=== PATIENT | female | born 1940 | race Caucasian/White ===

== ENCOUNTER → 2017-03-09 | Outpatient (CLI) | payer OTHER, BC ==
[~2017-03-09] MED LIST: ALL100 PO; ASPI1TAB83 PO; ATOR-24 PO; CHOL100010 PO; CITA10TA4 PO; DICY1TAB25 PO; FRS/40 PO; IMP/50 PO; ISOS60TA25 PO; LEVO75TA PO; METO25TA56 PO; NTRGSL/4 UT; PANT1TAB3 PO; SOLI10TA2 PO
== END | disposition home or self-care (01) ==
LOC: C.LABSPEC 13:17
PROVIDERS: ATTEND Urology
DX: R35.0 Frequency of micturition (principal); R39.15 Urgency of urination

== ENCOUNTER → 2017-05-25 | Outpatient (CLI) | payer OTHER, BC | END | disposition home or self-care (01) | LOC: C.LABSPEC 17:03 | PROVIDERS: ATTEND Urology | DX: R32 Unspecified urinary incontinence (principal) ==

== ENCOUNTER 2021-12-04 18:11 | Inpatient (IN) ==
--- NOTE | 2021-12-04 18:23 | Emergency Department Note ---
Impression & Plan COVID-19, Confusion, Positive blood culture ED Provider Note Provider: Coy Najera MD DATE OF SERVICE: 12/05/2021 CHIEF COMPLAINT: COVID, blood cultures HISTORY OF PRESENT ILLNESS: Patient is a 81-year-old female history of CVA and CKD presenting today from her nursing facility [facility]. Seen yesterday in callback by pharmacy staff due to positive blood culture today. Patient has a part of her COVID yesterday and has been having respiratory symptoms for about 2 weeks. She has been feeling more weak. Placed on doxycycline yesterday for possible pneumonia but blood work was reassuring. Given positive culture came back here today. Evidently patient is been a bit more confused and paranoid this morning and was refusing some medications according to daughter. She is complaining of a scratchy throat but swallowing okay. She does not really remember being angry and mean earlier today. REVIEW OF SYSTEMS: A total of 10 review of systems was obtained and negative except as stated above in the HPI. PAST MEDICAL HISTORY: As noted above MEDICATIONS: Reviewed home medications SOCIAL HISTORY: Has been at home but recently for the last several weeks at [facility] PHYSICAL EXAM: GENERAL: alert and oriented in no acute distress on stretcher Head: normocephalic and atraumatic EYES: No injection, discharge or icterus. NECK: Trachea midline. ENT: Mucous membranes pink and moist. LUNGS: Airway patent. No retractions. Breath sounds clear HEART: Regular rate and rhythm. No chest wall tenderness ABDOMEN: Soft and non-tender, without guarding or rebound. SKIN: Acyanotic, warm, dry, some trace contusions in the upper extremities from prior blood work. EXTREMITIES: patient with 1+ edema of the lower extremities. NEUROLOGICAL: No focal deficits. No aphasia. No facial droop or slurred speech. CONTINUOUS CARDIAC MONITORING: was ordered and showed a heart rate of 80s bpm in normal sinus rhythm Patient's laboratory studies and imaging reviewed. Differential includes Infection, dehydration, metabolic abnormality, hypo/hyperglycemia, electrolyte disturbance, anemia, hypoxia, cardiac sources, intracerebral event, toxicologic, neurologic, as well as other pathologies. IMPRESSION/MEDICAL DECISION MAKING: Patient weak and fatigued with respiratory symptoms most likely from COVID. X- ray was somewhat questionable yesterday. Blood cultures grew staph positive infection given this call back here today. It was a custodial facility receiving some therapy about was somewhat tenuous yesterday. Repeat blood will be sent today as well as cultures. Question she may have more serious infection again she is not doing well overall in general. Evidently was very paranoid and agitated earlier and not herself. Questions related to COVID infection versus possible other bacterial infection. Patient likely not significant hypoxic here hypotensive. Nonfocal exam but given some confusion. I will complete a CT of the head. Per radiology report no significant abnormality. CT of the chest completed given questions on the chest x-ray yesterday of a consolidation right lower lobe. Given the positive blood culture already will cover with vancomycin at this time given allergy profile. WBC count similar today around 6.5. Stable anemia. CT chest without contrast is reassuring today. Not hypoxic, low suspicion for PE at this point. Given her altered mental status likely this is just from the COVID recovered again. With antibiotics pending repeat cultures and further speciation. Will be further observed here in the hospital given the culture results and her likely delirium earlier. DIAGNOSIS: COVID-19, confusion, positive blood cultures DISPOSITION: Hospitalist will evaluate Patient was agreeable with this plan. Daughters updated at bedside. Past Med/Surg History Medical History (Updated 12/04/21 @ 19:05 by Coy Najera M.D.) Anemia Chronic kidney disease STAGE 3 Congestive heart failure Degenerative disc disease Depression GERD (gastroesophageal reflux disease) Gout Hyperlipidemia Hypertension Hypothyroidism Irritable bowel syndrome Migraine Morbid obesity with BMI of 50.0-59.9, adult Myocardial Infarction 2009 AND 2015 (2) Osteoarthritis Sleep apnea NO MACHINE Stroke TOTAL 3 STROKES (LAST EVENT JANUARY 2017) Urinary incontinence HX BLADDER STIMULATOR (DEVICE TURNED OFF) Surgical History History of appendectomy History of bladder surgery BLADDER STIMULATOR IMPLANTED (NOT TURNED ON/DEVICE NEVER WORKED) History of cardiac cath 2006 AND 2015 History of cataract surgery RT/LEFT History of cholecystectomy History of colonoscopy History of esophagogastroduodenoscopy (EGD) History of heart artery stent HEART CATH 200-1 STENT PLACED History of hemorrhoidectomy X2 History of tooth extraction History of total abdominal hysterectomy and bilateral salpingo-oophorectomy History of total left knee replacement (TKR) Family History Other No family history of adverse response to anesthesia Social History Smoking Status: Never smoker Second Hand Exposure: Yes (daughter smokes); Hx Alcohol Use: No Hx Substance Use: No Preferred Language: Divehi Communication Ability: Effective Linen Aide Required: No Beliefs That Will Affect Care: None Current Living Situation: Alone Current Living Situation Comment: Lives in daughter's backyard in a camper Feels Safe at Home: Yes Assistive Devices: Cane, Glasses and Walker Allergies Allergies Allergy/AdvReac Type Severity Reaction Status Date / Time albuterol Allergy Intermediate Difficulty Verified 06/04/18 08:32 Breathing cephalexin Allergy Mild VOMITTING, Verified 06/04/18 08:32 MIGRAINES Home Meds Home Medications Medication Instructions Recorded Confirmed allopurinol 100 mg tablet 100 mg PO BID 12/12/17 06/04/18 aspirin 81 mg tablet,delayed 81 mg PO HS 12/12/17 06/04/18 release atorvastatin 40 mg tablet 40 mg PO QPM 12/12/17 06/04/18 calcitriol 0.25 mcg capsule 0.25 mcg PO 3XWK 12/12/17 06/04/18 cholecalciferol (vitamin D3) 25 1,000 unit PO QPM 12/12/17 06/04/18 mcg (1,000 unit) capsule (Vitamin D3) clopidogrel 75 mg tablet (Plavix) 75 mg PO QPM 12/12/17 06/04/18 dicyclomine 20 mg tablet 20 mg PO TID 12/12/17 06/04/18 duloxetine 20 mg capsule,delayed 20 mg PO QAM 12/12/17 06/04/18 release furosemide 40 mg tablet 40 mg PO QAM 12/12/17 06/04/18 imipramine HCl 50 mg tablet 50 mg PO QPM 12/12/17 06/04/18 isosorbide mononitrate 60 mg 60 mg PO BID 12/12/17 06/04/18 tablet,extended release 24 hr levothyroxine 75 mcg capsule 75 mcg PO QAM 12/12/17 06/04/18 metoprolol tartrate 25 mg tablet 25 mg PO UD 12/12/17 06/04/18 pantoprazole 40 mg tablet,delayed 40 mg PO QAM 12/12/17 06/04/18 release acetaminophen 500 mg tablet 500 mg PO Q4 PRN Headache 05/28/18 06/04/18 nitroglycerin 0.4 mg sublingual 1 dose sublingual UD PRN Angina 05/28/18 05/28/18 tablet polyethylene glycol 3350 17 gram 17 g PO DAILY PRN Constipation 05/28/18 05/28/18 oral powder packet (Miralax) Previous Rx's Medication Instructions Recorded benzonatate 100 mg capsule 100 mg PO TID PRN cough #12 caps 12/03/21 doxycycline hyclate 100 mg capsule 100 mg PO BID 7 days #14 caps 12/03/21 Results & Data (ED) Vital Signs Vital Signs - 24 hr 12/04/21 18:14 Temperature 36.2 C L Temperature Source Temporal Artery Scan Pulse Rate 72 Pulse Rhythm Regular Pulse Strength Normal Respiratory Rate 22 Respiratory Effort / Characteristics Non-Labored Spontaneous Respiratory Depth Normal Respiratory Pattern Regular Blood Pressure 109/72 Blood Pressure Mean 84 Blood Pressure Position Sitting Pulse Oximetry 98 Oxygen Delivery Method Room Air Sepsis Recent Fever Within 48 Hours Yes Sepsis New/Unexplained Change in Mental Status No Sepsis Action Taken by Nursing No Action Required Laboratory Data Result diagrams: 12/04/21 18:40 12/04/21 18:40 Lab Results 12/04/21 12/04/21 Range/Units 18:40 18:40 WBC 6.49 (4.8-10.8) K/ul RBC 3.50 L (3.93-5.22) M/uL Hgb 11.2 L (12.0-16.0) g/dl Hct 34.7 (34.1-44.9) % MCV 99.1 (80.0-100.0) fL MCH 32.0 (25.0-34.0) pg MCHC 32.3 (32.0-36.0) g/dL RDW Std Deviation 54.4 H (36.4-46.3) fL RDW Coeff of Teresa 14.9 H (11.5-14.5) % Plt Count 280 (130-400) K/uL MPV 9.1 L (9.4-12.3) fL Immature Gran % (Auto) 0.3 % Neut % (Auto) 68.7 % Lymph % (Auto) 19.1 % Emery % (Auto) 11.7 % Eos % (Auto) 0.0 % Baso % (Auto) 0.2 % Neut # (Auto) 4.46 (1.4-6.5) K/uL Lymph # (Auto) 1.24 (1.2-3.4) K/uL Emery # (Auto) 0.76 (0.24-0.82) K/uL Eos # (Auto) 0.00 (0-0.50) K/uL Baso # (Auto) 0.01 (0-0.2) K/uL Immature Gran # (Auto) 0.02 (0.00-0.02) K/uL Sodium 141 (136-145) mmol/L Potassium 3.5 (3.5-5.1) mmol/L Chloride 99 (98-107) mmol/L Carbon Dioxide 33 H (21-32) mmol/L Anion Gap 9 (3-11) BUN 37 H (6-23) mg/dl Creatinine 1.29 H (0.6-1.2) mg/dl Est Cr Clr Drug Dosing 35.7 ml/min Est GFR ( Amer) 45.0 ml/min Est GFR (Non-Af Amer) 38.8 ml/min BUN/Creatinine Ratio 28.7 H (10-20) Glucose 102 H (70-99(Fasting)) mg/dl Calcium 9.5 (8.5-10.1) mg/dl Total Bilirubin 0.5 (0.2-1.0) mg/dl AST 19 (13-39) U/L ALT 12 (7-52) U/L Alkaline Phosphatase 139 H (34-104) U/L Troponin I High Sens 8.6 (0-14) pg/ml Total Protein 7.1 (6.0-8.3) gm/dl Albumin 3.8 (3.4-5.0) gm/dl Globulin 3.3 (2.5-4.0) gm/dl Albumin/Globulin Ratio 1.2 (0.9-2) Imaging Data Radiologist's Impression: Head CT 12/04/21 18:21 CT head/brain wo con CLINICAL HISTORY: confusion Technique: Contiguous axial CT images of the head were acquired from the base of the skull to the vertex without intravenous contrast administration. Images were viewed in brain, subdural and bone windows. Automated dose lowering techniques and/or adjustment according to patient size were utilized for this exam. Comparison: Comparison is made to CT head 02/21/2018 Findings: Areas of decreased attenuation are present in the periventricular and subcortical white matter bilaterally consistent with small vessel ischemic disease. Generalized cerebral atrophy with commensurate enlargement of the ventricles, sulci, and cisterns is also present. There is no acute intracranial hemorrhage or evidence of acute territorial infarction. No shift of the midline structures, mass effect, or extra-axial abnormalities are shown. Atherosclerotic calcifications are present in the intracranial segments of the internal carotid arteries. Old small left occipital lobe infarct is unchanged. Imaged portions of the paranasal sinuses and mastoid air cells are clear. The orbits appear normal. There are no acute fractures of the calvaria or scalp swe lling. Impression: No acute intracranial hemorrhage, no evidence of acute territorial infarction or other acute intracranial disease process. ACT 112: Negative or not required by law. Electronically signed by: Tang Guillaume M.D. 12/04/2021 7:[address] 12/04/21 18:24 CT chest diagnostic wo con CLINICAL HISTORY: ?pna, has covid, sob TECHNIQUE: Multidetector row helical CT of the chest was performed. Coronal and sagittal reformations were obtained. Automated dose lowering techniques and/or adjustment according to patient size were utilized for this exam. Comparison: Comparison is made to chest radiograph 12/03/2021 FINDINGS: Lungs and pleura: Mild atelectasis is seen bilaterally. No definite consolidation is seen to suggest pneumonia. Heart and pericardium: Heart size is normal. No pericardial effusion. Vessels: The pulmonary trunk is enlarged measuring 34 mm. Mediastinum and bishop: Unremarkable. Chest wall and lower neck: Unremarkable. Abdomen: A moderate hiatal hernia is seen. Patient is status post cholecyst ectomy. Bones: Degenerative changes in the thoracic spine. IMPRESSION: 1. No acute abnormality and in particular no CT evidence of pneumonia. 2. Moderate hiatal hernia and atelectasis. 3. Pulmonary hypertension. ACT 112: Negative or not required by law. Electronically signed by: Tang Guillaume M.D. 12/04/2021 7:10 PM Discharge Plan Visit Data Chief Complaint: Infection Stated Complaint: blood infection,recalled to hosp.altered mental st ED Provider: Coy Najera Discharge Problem: COVID-19, Confusion, Positive blood culture Patient Disposition: Being Evaluated by Hospitalist Forms Stand Alone [facility] Prescriptions: No Action furosemide 40 mg Tablet 40 mg PO QAM atorvastatin 40 mg Tablet 40 mg PO QPM imipramine HCl 50 mg Tablet 50 mg PO QPM clopidogrel [Plavix] 75 mg Tablet 75 mg PO QPM allopurinol 100 mg Tablet 100 mg PO BID aspirin 81 mg Tablet,Delayed Release (Dr/Ec) 81 mg PO HS isosorbide mononitrate 60 mg Tablet Extended Release 24 Hr 60 mg PO BID dicyclomine 20 mg Tablet 20 mg PO TID pantoprazole 40 mg Tablet,Delayed Release (Dr/Ec) 40 mg PO QAM calcitriol 0.25 mcg Capsule 0.25 mcg PO 3XWK Rx Instructions: MONDAY.MON/MONDAY cholecalciferol (vitamin D3) [Vitamin D3] 1,000 unit Capsule 1,000 unit PO QPM metoprolol tartrate 25 mg Tablet 25 mg PO UD Rx Instructions: TAKES 1 TAB IN AM, 1/2 TAB IN PM and take additional 1/2 tablet as needed for palpitations duloxetine 20 mg Capsule,Delayed Release(Dr/Ec) 20 mg PO QAM levothyroxine 75 mcg Capsule 75 mcg PO QAM polyethylene glycol 3350 [Miralax] 17 gram Powder In Packet 17 g PO DAILY PRN (Reason: Constipation) acetaminophen 500 mg Tablet 500 mg PO Q4 PRN (Reason: Headache) nitroglycerin 0.4 mg Tablet, Sublingual 1 dose sublingual UD PRN (Reason: Angina) doxycycline hyclate 100 mg capsule 100 mg PO BID 7 Days Qty: 14 0RF benzonatate 100 mg capsule 100 mg PO TID PRN (Reason: cough) Qty: 12 0RF Referrals Referrals: Tarun Sanchez MD [Primary Care Provider] -
[2021-12-04] MEDS ORDERED: VANCOMYCIN HCL 2,000 MG in SODIUM CHLORIDE 0.9% 500 ML IV ONE (18:40)
[2021-12-04] MEDS ORDERED: VANCOMYCIN CONSULT ACTIVE PRN (18:40)
[2021-12-04 18:52] LABS: Basophils # (auto) 0.01 K/uL (0-0.2); Basophils % (auto) 0.2 %; Hematocrit (blood only) 34.7 % (34.1-44.9); Hemoglobin 11.2 g/dl (12.0-16.0); Immature Granulocytes # (auto) 0.02 K/uL (0.00-0.02); Immature Granulocytes % (auto) 0.3 %; Lymphocytes # (auto) 1.24 K/uL (1.2-3.4); Lymphocytes % (auto) 19.1 %; Mean Corpuscular Hgb Conc 32.3 g/dL (32.0-36.0); Mean Corpuscular Volume 99.1 fL (80.0-100.0); Mean Platelet Volume 9.1 fL (9.4-12.3); Monocytes # (auto) 0.76 K/uL (0.24-0.82); Monocytes % (auto) 11.7 %; Neutrophils # (auto) 4.46 K/uL (1.4-6.5); Neutrophils % (auto) 68.7 %; Platelet Count 280 K/uL (130-400); RDW Coefficient of Variation 14.9 % (11.5-14.5); RDW Standard Deviation 54.4 fL (36.4-46.3); White Blood Count 6.49 K/ul (4.8-10.8)
--- NOTE | 2021-12-04 19:06 | CT Scan Report ---
CT head/brain wo con CLINICAL HISTORY: confusion Technique: Contiguous axial CT images of the head were acquired from the base of the skull to the belkys chris without intravenous contrast administration. Images were viewed in brain, subdural and [facility] . Automated dose lowering techniques and/or adjustment according to patient size were utilized for this exam. Comparison: Comparison is made to CT head 02/21/2018 Findings: Areas of decreased attenuation are present in the periventricular and subcortical white matter bilate rally consistent with small vessel ischemic disease. Generalized cerebral atrophy with commensurate e nlargement of the ventricles, sulci, and cisterns is also present. There is no acute intracranial hem orrhage or evidence of acute territorial infarction. No shift of the midline structures, mass effect, or extra-axial abnormalities are shown. Atherosclerotic calcifications are present in the intracran ial segments of the internal carotid arteries. Old small left occipital lobe infarct is unchanged. Imaged portions of the paranasal sinuses and mastoid air cells are clear. The orbits appear normal. There are no acute fractures of the calvaria or scalp swelling. Impression: No acute intracranial hemorrhage, no evidence of acute territorial infarction or other acute intracra nial disease process. ACT 112: Negative or not required by law. Electronically signed by: Tang Guillaume M.D. 12/04/2021 7:05 PM
--- NOTE | 2021-12-04 19:12 | CT Scan Report ---
CT chest diagnostic wo con CLINICAL HISTORY: ?pna, has covid, sob TECHNIQUE: Multidetector row helical CT of the chest was performed. Coronal and sagittal reformations were obtained. Automated dose lowering techniques and/or adjustment according to patient size were u tilized for this exam. Comparison: Comparison is made to chest radiograph 12/03/2021 FINDINGS: Lungs and pleura: Mild atelectasis is seen bilaterally. No definite consolidation is seen to suggest pneumonia. Heart and pericardium: Heart size is normal. No pericardial effusion. Vessels: The pulmonary trunk is enlarged measuring 34 mm. Mediastinum and bishop: Unremarkable. Chest wall and lower neck: Unremarkable. Abdomen: A moderate hiatal hernia is seen. Patient is status post cholecystectomy. Bones: Degenerative changes in the thoracic spine. IMPRESSION: 1. No acute abnormality and in particular no CT evidence of pneumonia. 2. Moderate hiatal hernia and atelectasis. 3. Pulmonary hypertension. ACT 112: Negative or not required by law. Electronically signed by: Tang Guillaume M.D. 12/04/2021 7:10 PM
[2021-12-04 19:18] LABS: Albumin Globulin Ratio 1.2 (0.9-2); Albumin Level 3.8 gm/dl (3.4-5.0); BUN Creatinine Ratio 28.7 (10-20); Bilirubin,Total 0.5 mg/dl (0.2-1.0); Calcium 9.5 mg/dl (8.5-10.1); Creatinine Clr Calc Pharmacy 35.7 ml/min; Est GFR (Non-African American) 38.8 ml/min; Globulin 3.3 gm/dl (2.5-4.0); Potassium 3.5 mmol/L (3.5-5.1); Total Protein 7.1 gm/dl (6.0-8.3)
[2021-12-04 19:19] LABS: Troponin I High Sensitivity 8.6 pg/ml (0-14)
[2021-12-04] MEDS ORDERED: LACTATED RINGER'S 1,000 ML IV ONE (20:00)
--- NOTE | 2021-12-04 22:30 | History & Physical Report ---
Date of Service December 04, 2021 Assessment & Plan (1) Agitation: Plan: Transient agitation Secondary to COVID-19 illness Patient currently mentating well. Rule out UTI Gram-positive bacteremia 1 bottle from ER visit yesterday Likely contaminant Patient not septic chronic diastolic heart failure (EF 55 to 60%, TTE 2021), patient euvolemic to dry hx CAD/CVA valvular heart disease (moderate MS, ) hypertension, BP on the lower side hyperlipidemia, on statin Rx CRI, creatinine at baseline hypothyroidism, euthyroid as of recent TSH Traumatic left calcaneal fracture, patient follows with [facility] anxiety/mood disorder OBS GMF Zyprexa prn agitation Supportive management for COVID-19 illness Check UA follow final blood CS results. Hold off on antibiotics for now PT OT eval DVT prophylaxis. Lovenox subcu DNR Patient requesting for daughter to be updated of her progress. Ms. Eunice Soliman, contact #[phone]. Text document was generated using [email or web address] voice recognition software. It may contain grammatical or spelling errors. Kindly contact undersigned for clarification of any documentation item in question. History of Present Illness Chief Complaint: Abnormal blood work, agitation Primary Care Provider: Tarun Sanchez MD History obtained from patient and records. Medical history significant for chronic diastolic heart failure (EF 55 to 60%, TTE 2021), CAD/CVA, valvular heart disease (moderate MS, ), hypertension, hyperlipidemia, CRI (baseline creatinine 1.3), hypothyroidism, anxiety/mood disorder traumatic left calcaneal fracture, Patient admitted at [facility] 2 months ago for recurrent falls resulting in left calcaneal fracture. No operative intervention. Patient currently following with [facility]. Subsequent discharged to [facility] rehab facility. Patient transferred [place] for extended rehab. 2 weeks ago patient noted cough symptoms productive of clear sputum. Positive sick COVID-19 contacts at [facility]. Patient completed COVID-19 vaccination. Poor appetite. Worsening shortness of breath without chest pain. Patient evaluated at the ER yesterday. Possible pneumonia on chest x-ray. Patient discharged back to nursing facility with doxycycline Rx. Gram-positive cocci in clusters growing from 1 bottle from blood cultures obtained from ER visit. 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 Patient confused and paranoid. Refusing some medications as per daughter. Patient denies unusual chest pain, SOB. Cough productive of clear sputum. Patient remembers yelling at [facility] staff because she was tired. Patient brought back to ER for evaluation. IV Vancomycin administered at the ER. Medical History as above Surgical History : Hemorrhoidectomy, laparoscopic appendectomy, partial toe removal left, tonsillectomy, cholecystectomy, CHRISTIANO, left knee replacement Family History : Leukemia, heart disease Personal/Social history : Non-smoker, no EtOH intake, homemaker in her younger years Allergies Allergy/AdvReac Type Severity Reaction Status Date / Time albuterol Allergy Intermediate Difficulty Verified 12/04/21 21:36 Breathing cephalexin Allergy Mild VOMITTING, Verified 12/04/21 21:36 MIGRAINES Home Medications Medication Instructions Recorded Confirmed Type acetaminophen 325 mg tablet 650 mg PO Q6 PRN Fever Or Pain 12/04/21 12/04/21 History (Tylenol) allopurinol 300 mg tablet 300 mg PO DAILY 12/04/21 12/04/21 History aspirin 81 mg tablet,delayed 81 mg PO DAILY 12/04/21 12/04/21 History release atorvastatin 40 mg tablet 40 mg PO DAILY 12/04/21 12/04/21 History benzonatate 100 mg capsule 200 mg PO Q8 PRN Cough 12/04/21 12/04/21 History bisacodyl 10 mg rectal suppository [address] DAILY PRN .NO BM 12/04/21 12/04/21 History (Dulcolax (bisacodyl)) cetirizine 10 mg tablet (Zyrtec) 10 mg PO DAILY 12/04/21 12/04/21 History cholecalciferol (vitamin D3) 25 50 mcg PO DAILY 12/04/21 12/04/21 History mcg (1,000 unit) tablet (Vitamin D3) clopidogrel 75 mg tablet 75 mg PO DAILY 12/04/21 12/04/21 History clotrimazole-betamethasone 1 1 applic topical BID 12/04/21 12/04/21 History %-0.05 % topical cream cranberry conc-vit 1 ea PO BID 12/04/21 12/04/21 History N-[id number]-TKU-bromelain 3,875 mg/30 mL oral liquid (UTI-Stat) dicyclomine 20 mg tablet 20 mg PO BID 12/04/21 12/04/21 History duloxetine 20 mg capsule,delayed 20 mg PO DAILY 12/04/21 12/04/21 History release sprinkle ferrous gluconate 324 mg (37.5 mg 324 mg PO MOWEFR 12/04/21 12/04/21 History iron) tablet furosemide 40 mg tablet 40 mg PO BID 12/04/21 12/04/21 History isosorbide mononitrate 60 mg 60 mg PO DAILY 12/04/21 12/04/21 History tablet,extended release 24 hr levothyroxine 75 mcg tablet 75 mcg PO DAILY 12/04/21 12/04/21 History magnesium hydroxide 400 mg/5 mL 30 ml PO DAILY PRN DIRECT 12/04/21 12/04/21 History oral suspension (Milk of Magnesia) methyl salicylate-menthol topical 1 applic topical QS 12/04/21 12/04/21 History cream metoprolol tartrate 25 mg tablet 25 mg PO BID 12/04/21 12/04/21 History nitroglycerin 0.4 mg sublingual 0.4 mg sublingual DIRECTED 12/04/21 12/04/21 History tablet oxycodone 5 mg tablet 5 mg PO Q6H PRN Pain 12/04/21 12/04/21 History pantoprazole 40 mg tablet,delayed 40 mg PO QAM 12/04/21 12/04/21 History release potassium chloride 10 mEq 10 meq PO DAILY 12/04/21 12/04/21 History capsule,extended release vitamin A-vitamin C-vit E-min 1 tab PO DAILY 12/04/21 12/04/21 History tablet Past Med/Surg History Medical History (Updated 12/05/21 @ 09:57 by Leonid Jimenez MD) Anemia Chronic kidney disease STAGE 3 Congestive heart failure Degenerative disc disease Depression GERD (gastroesophageal reflux disease) Gout Hyperlipidemia Hypertension Hypothyroidism Irritable bowel syndrome Migraine Morbid obesity with BMI of 50.0-59.9, adult Myocardial Infarction 2009 AND 2016 (2) Osteoarthritis Sleep apnea NO MACHINE Stroke TOTAL 3 STROKES (LAST EVENT JANUARY 2017) Urinary incontinence HX BLADDER STIMULATOR (DEVICE TURNED OFF) Surgical History History of appendectomy History of bladder surgery BLADDER STIMULATOR IMPLANTED (NOT TURNED ON/DEVICE NEVER WORKED) History of cardiac cath 2006 AND 2015 History of cataract surgery RT/LEFT History of cholecystectomy History of colonoscopy History of esophagogastroduodenoscopy (EGD) History of heart artery stent HEART CATH 200-1 STENT PLACED History of hemorrhoidectomy X2 History of tooth extraction History of total abdominal hysterectomy and bilateral salpingo-oophorectomy History of total left knee replacement (TKR) Family History Other No family history of adverse response to anesthesia Social History Smoking Status: Never smoker Second Hand Exposure: Yes (daughter smokes); Hx Alcohol Use: No Hx Substance Use: No Preferred Language: Trinidadian Communication Ability: Effective Environmental Field Services Technician Required: No Beliefs That Will Affect Care: None Current Living Situation: Assisted Current Living Situation Comment: Lives in daughter's backyard in a camper Feels Safe at Home: Yes Safety Concerns: Feels Safe At This Time Assistive Devices: Cane, Glasses and Walker Review of Systems Review of Systems: As per HPI, all other systems reviewed and negative Physical Exam Physical Exam: GENERAL: Comfortable, pleasant, morbidly obese, no respiratory distress SKIN: Normal color, warm HEENT: Ajo palpebral conjunctivae, no ptosis, dry buccal mucosa NECK : Supple, short neck, no tenderness CHEST : Decreased breath sounds, occasional expiratory wheezes, no tenderness HEART : RRR, no obvious murmurs ABDOMEN: Some distention, nontender EXTREMITIES : Minimal LE swelling, no LE tenderness, no other conspicuous deformities noted NEUROLOGIC : Coherent, no facial asymmetry, gait and stance not assessed Results & Data Results & Data ([facility]) Vital Signs (Past 12 Hours) Vital Signs Temp Pulse Resp BP BP Pulse Ox O2 Del Method 12/04/21 18:12 19 143/83 H Room Air 12/04/21 18:14 36.2 C L 72 22 109/72 98 Room Air Laboratory Results Laboratory Results WBC 6.49 K/ul (4.8-10.8) 12/04/21 18:40 RBC 3.50 M/uL (3.93-5.22) L 12/04/21 18:40 Hgb 11.2 g/dl (12.0-16.0) L 12/04/21 18:40 Hct 34.7 % (34.1-44.9) 12/04/21 18:40 MCV 99.1 fL (80.0-100.0) 12/04/21 18:40 MCH 32.0 pg (25.0-34.0) 12/04/21 18:40 MCHC 32.3 g/dL (32.0-36.0) 12/04/21 18:40 RDW Std Deviation 54.4 fL (36.4-46.3) H 12/04/21 18:40 RDW Coeff of Teresa 14.9 % (11.5-14.5) H 12/04/21 18:40 Plt Count 280 K/uL (130-400) 12/04/21 18:40 MPV 9.1 fL (9.4-12.3) L 12/04/21 18:40 Immature Gran % (Auto) 0.3 % 12/04/21 18:40 Neut % (Auto) 68.7 % 12/04/21 18:40 Lymph % (Auto) 19.1 % 12/04/21 18:40 [place] % (Auto) 11.7 % 12/04/21 18:40 Eos % (Auto) 0.0 % 12/04/21 18:40 Baso % (Auto) 0.2 % 12/04/21 18:40 Neut # (Auto) 4.46 K/uL (1.4-6.5) 12/04/21 18:40 Lymph # (Auto) 1.24 K/uL (1.2-3.4) 12/04/21 18:40 [place]oup # (Auto) 0.76 K/uL (0.24-0.82) 12/04/21 18:40 Eos # (Auto) 0.00 K/uL (0-0.50) 12/04/21 18:40 Baso # (Auto) 0.01 K/uL (0-0.2) 12/04/21 18:40 Immature Gran # (Auto) 0.02 K/uL (0.00-0.02) 12/04/21 18:40 Sodium 141 mmol/L (136-145) 12/04/21 18:40 Potassium 3.5 mmol/L (3.5-5.1) 12/04/21 18:40 Chloride 99 mmol/L (98-107) 12/04/21 18:40 Carbon Dioxide 33 mmol/L (21-32) H 12/04/21 18:40 Anion Gap 9 (3-11) 12/04/21 18:40 BUN 37 mg/dl (6-23) H 12/04/21 18:40 Creatinine 1.29 mg/dl (0.6-1.2) H 12/04/21 18:40 Est Cr Clr Drug Dosing 35.7 ml/min 12/04/21 18:40 Est GFR ( Amer) 45.0 ml/min 12/04/21 18:40 Est GFR (Non-Af Amer) 38.8 ml/min 12/04/21 18:40 BUN/Creatinine Ratio 28.7 (10-20) H 12/04/21 18:40 Glucose 102 mg/dl (70-99(Fasting)) H 12/04/21 18:40 Lactate 1.1 mmol/L (0.4-2.0) 12/04/21 19:48 Calcium 9.5 mg/dl (8.5-10.1) 12/04/21 18:40 Total Bilirubin 0.5 mg/dl (0.2-1.0) 12/04/21 18:40 AST 19 U/L (13-39) 12/04/21 18:40 ALT 12 U/L (7-52) 12/04/21 18:40 Alkaline Phosphatase 139 U/L (34-104) H 12/04/21 18:40 Troponin I High Sens 8.6 pg/ml (0-14) 12/04/21 18:40 Total Protein 7.1 gm/dl (6.0-8.3) 12/04/21 18:40 Albumin 3.8 gm/dl (3.4-5.0) 12/04/21 18:40 Globulin 3.3 gm/dl (2.5-4.0) 12/04/21 18:40 Albumin/Globulin Ratio 1.2 (0.9-2) 12/04/21 18:[address] 12/04/21 18:21 CT head/brain wo con CLINICAL HISTORY: confusion Technique: Contiguous axial CT images of the head were acquired from the base of the skull to the vertex without intravenous contrast administration. Images were viewed in brain, subdural and bone windows. Automated dose lowering techniques and/or adjustment according to patient size were utilized for this exam. Comparison: Comparison is made to CT head 02/21/2018 Findings: Areas of decreased attenuation are present in the periventricular and subcortical white matter bilaterally consistent with small vessel ischemic dise ase. Generalized cerebral atrophy with commensurate enlargement of the ventricles, sulci, and cisterns is also present. There is no acute intracranial hemorrhage or evidence of acute territorial infarction. No shift of the midline structures, mass effect, or extra-axial abnormalities are shown. Atherosclerotic calcifications are present in the intracranial segments of the internal carotid arteries. Old small left occipital lobe infarct is unchanged. Imaged portions of the paranasal sinuses and mastoid air cells are clear. The orbits appear normal. There are no acute fractures of the calvaria or scalp swelling. Impression: No acute intracranial hemorrhage, no evidence of acute territorial infarction or other acute intracranial disease process. ACT 112: Negative or not required by law. Electronically signed by: Tang Guillaume M.D. 12/04/2021 7:[address] 12/04/21 18:24 CT chest diagnostic wo con CLINICAL HISTORY: ?pna, has covid, sob TECHNIQUE: Multidetector row helical CT of the chest was performed. Coronal and sagittal reformations were obtained. Automated dose lowering techniques and/or adjustment according to patient size were utilized for this exam. Comparison: Comparison is made to chest radiograph 12/03/2021 FINDINGS: Lungs and pleura: Mild atelectasis is seen bilaterally. No definite consolidation is seen to suggest pneumonia. Heart and pericardium: Heart size is normal. No pericardial effusion. Vessels: The pulmonary trunk is enlarged measuring 34 mm. Mediastinum and bishop: Unremarkable. Chest wall and lower neck: Unremarkable. Abdomen: A moderate hiatal hernia is seen. Patient is status post cholecystectomy. Bones: Degenerative changes in the thoracic spine. IMPRESSION: 1. No acute abnormality and in particular no CT evidence of pneumonia. 2. Moderate hiatal hernia and atelectasis. 3. Pulmonary hypertension. ACT 112: Negative or not required by law. Electronically signed by: Tang Guillaume M.D. 12/04/2021 7:10 PM Diagnostic Findings EKG as per my interpretation :Rate 95, NSR, normal axis, diffuse T wave abnormalities
[2021-12-04] MEDS ORDERED: BENZONATATE 100 MG CAPSULE PO STA (22:41)
[2021-12-05] MEDS ORDERED: bisacodyL 10 MG SUPP PR PRN (00:54)
[2021-12-05] MEDS ORDERED: PROMETHAZINE HCL 12.5 MG in SODIUM CHLORIDE 0.9% 50 ML IV PRN (00:54)
[2021-12-05] MEDS ORDERED: OLANZapine 10 MG/2.1 ML SDV IM PRN (01:26)
[2021-12-05] MEDS: METOPROLOL TARTRATE 25 MG TAB PO SCH ×3 (01:55→19:40)
[2021-12-05] MEDS: oxyCODONE HCL IR 5 MG TAB (IMMEDIATE RELEASE) PO PRN (01:56)
[2021-12-05] MEDS: LEVOTHYROXINE SODIUM 75 MCG TABLET PO SCH (05:53)
[2021-12-05 05:58] LABS: Basophils # (auto) 0.03 K/uL (0-0.2); Basophils % (auto) 0.3 %; Eosinophils # (auto) 0.03 K/uL (0-0.50); Eosinophils % (auto) 0.3 %; Hematocrit (blood only) 30.3 % (34.1-44.9); Hemoglobin 9.9 g/dl (12.0-16.0); Immature Granulocytes # (auto) 0.08 K/uL (0.00-0.02); Immature Granulocytes % (auto) 0.8 %; Lymphocytes # (auto) 0.86 K/uL (1.2-3.4); Mean Corpuscular Hemoglobin 32.5 pg (25.0-34.0); Mean Corpuscular Hgb Conc 32.7 g/dL (32.0-36.0); Mean Corpuscular Volume 99.3 fL (80.0-100.0); Mean Platelet Volume 9.5 fL (9.4-12.3); Monocytes # (auto) 0.22 K/uL (0.24-0.82); Monocytes % (auto) 2.3 %; Neutrophils # (auto) 8.34 K/uL (1.4-6.5); Neutrophils % (auto) 87.3 %; Platelet Count 248 K/uL (130-400); RDW Standard Deviation 54.6 fL (36.4-46.3); Red Blood Count 3.05 M/uL (3.93-5.22); White Blood Count 9.56 K/ul (4.8-10.8)
[2021-12-05 06:15] LABS: BUN Creatinine Ratio 29.8 (10-20); Calcium 8.4 mg/dl (8.5-10.1); Creatinine Clr Calc Pharmacy 36.4 ml/min; Est GFR (African American) 48.6 ml/min; Est GFR (Non-African American) 41.9 ml/min; Potassium 3.5 mmol/L (3.5-5.1)
[2021-12-05] MEDS: ISOSORBIDE MONO EXTENDED REL 60 MG TABCR PO SCH (08:29)
[2021-12-05] MEDS: ENOXAPARIN INJ 40 MG/0.4 ML SYR SQ SCH (08:29)
[2021-12-05] MEDS: ASPIRIN 81 MG ECTAB PO SCH (08:29)
[2021-12-05] MEDS: PANTOprazole 40 MG TAB PO SCH (08:29)
[2021-12-05] MEDS: ATORVASTATIN 40 MG TAB PO SCH (08:29)
[2021-12-05] MEDS: CETIRIZINE HCL 10 MG TABLET PO SCH (08:29)
[2021-12-05] MEDS: CLOPIDOGREL BISULFATE 75 MG TAB PO SCH (08:29)
[2021-12-05] MEDS: DULoxetine HCL 20 MG CAP PO SCH (08:29)
[2021-12-05] MEDS: allopurinoL 300 MG TAB PO SCH (08:29)
[2021-12-05 10:43] LABS: Appearance Urine Clear (Clear); Bacteria Urine Automated Negative (Negative); Bilirubin Urine Negative (Negative); Blood Urine Negative (Negative); Color Urine Yellow; Glucose Urine UA Negative (Negative); Ketones Urine Negative (Negative); Leukocyte Esterase Urine Trace (Negative); Nitrite Urine Negative (Negative); Protein Urine Negative (Negative); Specific Gravity Urine 1.013 (1.000-1.030); Urobilinogen Urine Negative (Negative); pH Urine 5.5 (4.5-7.5)
[2021-12-05] MEDS ORDERED: IPRATROPIUM BROMIDE NEB SOLN 0.02% 2.5 ML VIAL NEB STA (13:16)
[2021-12-05] MEDS ORDERED: methylPREDNISolone 40 MG in SYRINGE 0 ML IV ONE (13:30)
--- NOTE | 2021-12-05 17:06 | Hospitalist Progress Note ---
Date of Service December 05, 2021 Assessment & Plan (1) Confusion: (2) Agitation: Plan: Present on admission with confusion and paranoid Possible related to medication ( Oxycodone, duloxetine) vs acute illness CT head showed no acute intracranial hemorrhage, no evidence of acute territorial infarction or other acute intracranial disease process. Will avoid any Benzo On Olanzapine prn Continue monitor COVID [address] chest showed no acute abnormality and no evidence of pneumonia. Mild wheezing on exam Solumedrol 40mg IV given (will monitor for steroid psychosis ) saturated well on RA Continue incentive spirometry and flutter valve Continue monitor closely Staph species Possible contamination (1 bottle out of 4 ) Lactic acid elevated on admission, now normalize WBC and procalcitonin are normal Received IV vanco on admission Repeat Blood cx pending Continue monitor closely Hypothyroidism TSH wnl Continue Levothyroxine CAD Troponin x3 negative Continue metoprolol, aspirin, plavix and statin DVT px on lovenox Code status DNR Admission and Anticipated Discharge Date Admission Date: December 04, 2021 Subjective Pt was seen and examined for follow agitation, confusion She was sitting in chair with no acute distress early But later she said that she felt a pressure feeling in her chest She continues to cough She said that she has a weird feeling in her head that she could not describe Review of Systems Review of Systems: All systems reviewed & are unremarkable except as noted in Subjective Physical Exam Physical Exam: General- No acute distress Head- atraumatic Eyes- PERRL, EOMI, ENT- oropharynx clear Neck- supple, no JVD Lungs- diminished BS, + faint wheezing Heart- regular rhythm; no murmur Abdomen- normal bowel sounds, soft, nontender Extremities- no calf tenderness, +edema Neuro- alert, oriented x 3; PERRL, EOMI; no facial palsy; no dysarthria Skin- warm & dry Results & Data Results & Data ([facility]) Vital Signs (Past 12 Hours) Vital Signs Temp Pulse Resp BP Pulse Ox O2 Del Method 12/05/21 16:43 36.7 C 73 18 104/53 L 93 Room Air 12/05/21 13:49 77 20 97 Room Air 12/05/21 13:08 79 22 129/63 97 Room Air 12/05/21 08:00 Room Air 12/05/21 07:47 36.7 C 72 16 103/66 91 Room Air
[2021-12-06] MEDS: LEVOTHYROXINE SODIUM 75 MCG TABLET PO SCH (05:56)
[2021-12-06 07:59] LABS: Hematocrit (blood only) 32.3 % (34.1-44.9); Hemoglobin 10.3 g/dl (12.0-16.0); Mean Corpuscular Hgb Conc 31.9 g/dL (32.0-36.0); Mean Corpuscular Volume 100.3 fL (80.0-100.0); Mean Platelet Volume 9.5 fL (9.4-12.3); Platelet Count 225 K/uL (130-400); RDW Coefficient of Variation 14.7 % (11.5-14.5); RDW Standard Deviation 55.4 fL (36.4-46.3); Red Blood Count 3.22 M/uL (3.93-5.22); White Blood Count 3.37 K/ul (4.8-10.8)
[2021-12-06] MEDS: METOPROLOL TARTRATE 25 MG TAB PO SCH ×2 (08:10→20:39)
[2021-12-06] MEDS: DULoxetine HCL 20 MG CAP PO SCH (08:11)
[2021-12-06] MEDS: PANTOprazole 40 MG TAB PO SCH (08:11)
[2021-12-06] MEDS: FERROUS GLUCONATE 324 MG TAB PO SCH (08:11)
[2021-12-06] MEDS: ISOSORBIDE MONO EXTENDED REL 60 MG TABCR PO SCH (08:11)
[2021-12-06] MEDS: CLOPIDOGREL BISULFATE 75 MG TAB PO SCH (08:12)
[2021-12-06] MEDS: ASPIRIN 81 MG ECTAB PO SCH (08:12)
[2021-12-06] MEDS: allopurinoL 300 MG TAB PO SCH (08:12)
[2021-12-06] MEDS: ENOXAPARIN INJ 40 MG/0.4 ML SYR SQ SCH (08:12)
[2021-12-06] MEDS: CETIRIZINE HCL 10 MG TABLET PO SCH (08:12)
[2021-12-06] MEDS: ATORVASTATIN 40 MG TAB PO SCH (08:12)
[2021-12-06 08:44] LABS: Calcium 8.9 mg/dl (8.5-10.1); Creatinine Clr Calc Pharmacy 36.1 ml/min; Est GFR (African American) 48.1 ml/min; Est GFR (Non-African American) 41.5 ml/min; Potassium 3.7 mmol/L (3.5-5.1)
--- NOTE | 2021-12-06 17:08 | Hospitalist Progress Note ---
Date of Service December 06, 2021 Assessment & Plan (1) Confusion: (2) Agitation: Plan: Present on admission with confusion and paranoid Possible related to medication ( Oxycodone, duloxetine) vs acute illness CT head showed no acute intracranial hemorrhage, no evidence of acute territorial infarction or other acute intracranial disease process. Will avoid any Benzo On Olanzapine prn Continue monitor COVID [address] chest showed no acute abnormality and no evidence of pneumonia. Mild wheezing on exam Solumedrol 40mg IV given (will monitor for steroid psychosis ) saturated well on RA Continue incentive spirometry and flutter valve Will continue prednisone x 5 days Continue monitor closely Staph species Blood cx grew Staphylococcus lugdunensis Possible contamination (1 bottle out of 4 ) Lactic acid elevated on admission, now normalize WBC and procalcitonin x 2 are normal Received IV vanco on admission Repeat Blood cx no growth Continue monitor closely Hypothyroidism TSH WNL Continue Levothyroxine CAD Troponin x3 negative Continue metoprolol, aspirin, Plavix and statin DVT px on Lovenox Code status DNR Admission and Anticipated Discharge Date Admission Date: December 06, 2021 Subjective Pt was seen and examined for follow agitation, confusion She was sitting in chair with no acute distress early She said that she continued to cough She said that her breathing improved Denies any chest pain, palpitation, dizziness and SOB Review of Systems Review of Systems: All systems reviewed & are unremarkable except as noted in Subjective Physical Exam Physical Exam: General- No acute distress Head- atraumatic Eyes- PERRL, EOMI, ENT- oropharynx clear Neck- supple, no JVD Lungs- diminished BS, + faint wheezing Heart- regular rhythm; no murmur Abdomen- normal bowel sounds, soft, nontender Extremities- no calf tenderness, +edema Neuro- alert, oriented x 3; PERRL, EOMI; no facial palsy; no dysarthria Skin- warm & dry Results & Data Results & Data ([facility]) Vital Signs (Past 12 Hours) Vital Signs Temp Pulse Resp BP Pulse Ox O2 Del Method 12/06/21 15:38 36.6 C 78 16 106/62 94 Room Air 12/06/21 12:44 36.7 C 76 20 114/66 96 Room Air 12/06/21 12:24 36.7 C 76 20 114/66 96 Room Air 12/06/21 08:00 Room Air 12/06/21 07:54 36.3 C L 79 18 109/64 96 Room Air
[2021-12-06] MEDS: BENZONATATE 100 MG CAPSULE PO PRN (20:38)
[2021-12-06] MEDS: ACETAMINOPHEN 325 MG TAB PO PRN (20:38)
--- NOTE | 2021-12-06 22:32 | Electrocardiogram Report ---
Test Reason : Blood Pressure : / mmHG Vent. Rate : 083 BPM Atrial Rate : 083 BPM P-R Int : 150 ms QRS Dur : 072 ms QT Int : 392 ms P-R-T Axes : 059 034 005 degrees QTc Int : 460 ms Normal sinus rhythm Low voltage QRS Borderline ECG When compared with ECG of 03-DEC-2021 14:55, Borderline criteria for Anterior infarct are no longer Present Nonspecific T wave abnormality no longer evident in Anterolateral leads Confirmed by Segun Westbrook ([id number]) on 12/06/2021 10:32:22 PM Referred By: REFERRED SELF Confirmed By:Segun Westbrook
[2021-12-07] MEDS: LEVOTHYROXINE SODIUM 75 MCG TABLET PO SCH (05:35)
[2021-12-07] MEDS: BENZONATATE 100 MG CAPSULE PO PRN ×2 (05:35→13:48)
[2021-12-07] MEDS: ACETAMINOPHEN 325 MG TAB PO PRN ×2 (05:35→13:48)
[2021-12-07] MEDS: CLOPIDOGREL BISULFATE 75 MG TAB PO SCH (08:14)
[2021-12-07] MEDS: ATORVASTATIN 40 MG TAB PO SCH (08:14)
[2021-12-07] MEDS: PANTOprazole 40 MG TAB PO SCH (08:14)
[2021-12-07] MEDS: ISOSORBIDE MONO EXTENDED REL 60 MG TABCR PO SCH (08:14)
[2021-12-07] MEDS: allopurinoL 300 MG TAB PO SCH (08:15)
[2021-12-07] MEDS: ENOXAPARIN INJ 40 MG/0.4 ML SYR SQ SCH (08:15)
[2021-12-07] MEDS: ASPIRIN 81 MG ECTAB PO SCH (08:15)
[2021-12-07] MEDS: CETIRIZINE HCL 10 MG TABLET PO SCH (08:15)
[2021-12-07] MEDS: DULoxetine HCL 20 MG CAP PO SCH (08:15)
[2021-12-07] MEDS: METOPROLOL TARTRATE 25 MG TAB PO SCH ×2 (08:16→21:03)
[2021-12-07] MEDS: predniSONE 20 MG TAB PO SCH (13:49)
--- NOTE | 2021-12-07 21:00 | Hospitalist Progress Note ---
Date of Service December 07, 2021 Assessment & Plan (1) Confusion: (2) Agitation: Plan: Present on admission with confusion and paranoid Possible related to medication ( Oxycodone, duloxetine) vs acute illness CT head showed no acute intracranial hemorrhage, no evidence of acute territorial infarction or other acute intracranial disease process. Continue amilcar avoid any Benzo On Olanzapine prn reolved COVID [address] chest showed no acute abnormality and no evidence of pneumonia. Mild wheezing on exam Solumedrol 40mg IV given (will monitor for steroid psychosis ) saturated well on RA Continue incentive spirometry and flutter valve Continue prednisone x 5 days Continue monitor closely Staph species Blood cx grew Staphylococcus lugdunensis Possible contamination (1 bottle out of 4 ) Lactic acid elevated on admission, now normalize WBC and procalcitonin x 2 are normal Received IV vanco on admission Repeat Blood cx no growth Continue monitor closely Hypothyroidism TSH WNL Continue Levothyroxine CAD Troponin x3 negative Continue metoprolol, aspirin, Plavix and statin DVT px on Lovenox Code status DNR Disposition Will discharge once medically stable Admission and Anticipated Discharge Date Admission Date: December 06, 2021 Subjective Pt was seen and examined for follow agitation, confusion Lying in bed with no acute distress She said that her breathing improved Spoke to family when they came to visit her today in details and answered all the questions Denies any chest pain, palpitation, dizziness and SOB Review of Systems Review of Systems: All systems reviewed & are unremarkable except as noted in Subjective Physical Exam Physical Exam: General- No acute distress Head- atraumatic Eyes- PERRL, EOMI, ENT- oropharynx clear Neck- supple, no JVD Lungs- diminished BS, + faint wheezing Heart- regular rhythm; no murmur Abdomen- normal bowel sounds, soft, nontender Extremities- no calf tenderness, +edema Neuro- alert, oriented x 3; PERRL, EOMI; no facial palsy; no dysarthria Skin- warm & dry Results & Data Results & Data ([facility]) Vital Signs (Past 12 Hours) Vital Signs Temp Pulse Resp BP Pulse Ox O2 Del Method 12/07/21 14:58 36.6 C 69 16 111/71 94 Room Air
[2021-12-08] MEDS: LEVOTHYROXINE SODIUM 75 MCG TABLET PO SCH (06:34)
[2021-12-08 08:23] LABS: Hematocrit (blood only) 30.9 % (34.1-44.9); Mean Corpuscular Hemoglobin 32.2 pg (25.0-34.0); Mean Corpuscular Hgb Conc 32.4 g/dL (32.0-36.0); Mean Corpuscular Volume 99.4 fL (80.0-100.0); Mean Platelet Volume 9.9 fL (9.4-12.3); Platelet Count 224 K/uL (130-400); RDW Coefficient of Variation 14.2 % (11.5-14.5); RDW Standard Deviation 51.8 fL (36.4-46.3); Red Blood Count 3.11 M/uL (3.93-5.22); White Blood Count 6.47 K/ul (4.8-10.8)
[2021-12-08 08:52] LABS: BUN Creatinine Ratio 28.2 (10-20); Calcium 8.6 mg/dl (8.5-10.1); Creatinine Clr Calc Pharmacy 35.5 ml/min; Est GFR (African American) 47.2 ml/min; Est GFR (Non-African American) 40.7 ml/min; Potassium 3.5 mmol/L (3.5-5.1)
[2021-12-08] MEDS: allopurinoL 300 MG TAB PO SCH (08:54)
[2021-12-08] MEDS: DULoxetine HCL 20 MG CAP PO SCH (08:54)
[2021-12-08] MEDS: predniSONE 20 MG TAB PO SCH (08:54)
[2021-12-08] MEDS: FERROUS GLUCONATE 324 MG TAB PO SCH (08:54)
[2021-12-08] MEDS: ISOSORBIDE MONO EXTENDED REL 60 MG TABCR PO SCH (08:54)
[2021-12-08] MEDS: METOPROLOL TARTRATE 25 MG TAB PO SCH ×2 (08:55→21:04)
[2021-12-08] MEDS: ENOXAPARIN INJ 40 MG/0.4 ML SYR SQ SCH (08:55)
[2021-12-08] MEDS: ASPIRIN 81 MG ECTAB PO SCH (08:55)
[2021-12-08] MEDS: PANTOprazole 40 MG TAB PO SCH (08:55)
[2021-12-08] MEDS: ATORVASTATIN 40 MG TAB PO SCH (08:55)
[2021-12-08] MEDS: CETIRIZINE HCL 10 MG TABLET PO SCH (08:55)
[2021-12-08] MEDS: CLOPIDOGREL BISULFATE 75 MG TAB PO SCH (08:55)
[2021-12-08] MEDS ORDERED: guaiFENesin SUGAR FREE 100 MG/5 ML UDC PO STA (14:50)
[2021-12-08] MEDS: oxyCODONE HCL IR 5 MG TAB (IMMEDIATE RELEASE) PO PRN (15:03)
--- NOTE | 2021-12-08 16:07 | Hospitalist Progress Note ---
Date of Service December 08, 2021 Assessment & Plan (1) Confusion: (2) Agitation: Plan: Present on admission with confusion and paranoid Possible related to medication ( Oxycodone, duloxetine) vs acute illness from COVID [address] head showed no acute intracranial hemorrhage, no evidence of acute territorial infarction or other acute intracranial disease process. Continue to avoid any Benzo Review of [place] PDMP does not show oxycodone. Patient has only needed 2 doses since admission per APR. Will stop oxycodone Use tylenol prn for pain Confusion is currently resolved COVID [address] chest showed no acute abnormality and no evidence of pneumonia. Good oxygen sats on room air Continue incentive spirometry and flutter valve Hold prednisone for now Continue supportive care Guafenesin 600mg q12h Staph species Blood cx grew Staphylococcus lugdunensis Possible contamination (1 bottle out of 4 ) Lactic acid elevated on admission, now normalized WBC and procalcitonin x 2 are normal Received IV vanco on admission Repeat Blood cx no growth Hypothyroidism TSH WNL Continue Levothyroxine CAD Troponin x3 negative Continue metoprolol, aspirin, Plavix and statin DVT px on Lovenox Code status DNR Disposition Possible dc in 24-48h Admission and Anticipated Discharge Date Admission Date: December 06, 2021 Subjective Patient seen and examined. Reports cough. Denies any chest pain Reports some shortness of breath but improving since admission. Reports weakness is improving Denies any headache, dizziness Denies nausea, vomiting, abdominal pain. Had 2 loose bowel movement this morning Denied any dysuria, freq, ugrency Physical Exam Constitutional: + well hydrated and + obese; no acute distress Eyes: PERRL, conjunctivae normal, anicteric sclerae ENMT: external ear and nose normal, oropharynx normal Respiratory: normal respiratory effort; no respiratory distress Good air entry. No crackles Cardiovascular: Rate/Rhythm: regular rate and regular rhythm S1 S2 Gastrointestinal (Abdomen): normal bowel sounds, soft, nontender, no hepatosplenomegaly Musculoskeletal: Trace pedal edema Neurologic: PERRL, EOMI, accommodation nl, no face palsy, no dysarthria Psychiatric: A+Ox3, euthymic affect Results & Data Results & Data ([facility]) Vital Signs (Past 12 Hours) Vital Signs Temp Pulse Resp BP Pulse Ox O2 Del Method 12/08/21 15:04 36.4 C L 79 18 139/77 97 Room Air 12/08/21 08:30 Room Air 12/08/21 08:52 36.5 C 75 16 162/82 H 97 Room Air Laboratory Results Abnormal lab results 12/08/21 12/08/21 Range/Units 07:12 07:12 RBC 3.11 L (3.93-5.22) M/uL Hgb 10.0 L (12.0-16.0) g/dl Hct 30.9 L (34.1-44.9) % RDW Std Deviation 51.8 H (36.4-46.3) fL BUN 35 H (6-23) mg/dl Creatinine 1.24 H (0.6-1.2) mg/dl BUN/Creatinine Ratio 28.2 H (10-20) Glucose 101 H (70-99(Fasting)) mg/dl
[2021-12-08] MEDS: guaiFENesin 600 MG TABCR PO SCH (20:57)
[2021-12-09] MEDS: LEVOTHYROXINE SODIUM 75 MCG TABLET PO SCH (05:58)
[2021-12-09] MEDS: CETIRIZINE HCL 10 MG TABLET PO SCH (08:12)
[2021-12-09] MEDS: ASPIRIN 81 MG ECTAB PO SCH (08:12)
[2021-12-09] MEDS: guaiFENesin 600 MG TABCR PO SCH (08:12)
[2021-12-09] MEDS: ISOSORBIDE MONO EXTENDED REL 60 MG TABCR PO SCH (08:12)
[2021-12-09] MEDS: allopurinoL 300 MG TAB PO SCH (08:12)
[2021-12-09] MEDS: ATORVASTATIN 40 MG TAB PO SCH (08:12)
[2021-12-09] MEDS: CLOPIDOGREL BISULFATE 75 MG TAB PO SCH (08:12)
[2021-12-09] MEDS: PANTOprazole 40 MG TAB PO SCH (08:12)
[2021-12-09] MEDS: METOPROLOL TARTRATE 25 MG TAB PO SCH (08:13)
[2021-12-09] MEDS: DULoxetine HCL 20 MG CAP PO SCH (08:13)
[2021-12-09] MEDS: ENOXAPARIN INJ 40 MG/0.4 ML SYR SQ SCH (08:17)
--- NOTE | 2021-12-09 11:26 | Discharge Summary ---
Discharge Summary Date of Service December 09, 2021 Notes For Next Care Provider Follow up recovery at Rehab Continue managment of chronic medical problems Medication Changes From Visit Avoid opioids or benzodiazepines as much as possible Admission HPI Per Admitting Provider History obtained from patient and records. Medical history significant for chronic diastolic heart failure (EF 55 to 60%, TTE 2021), CAD/CVA, valvular heart disease (moderate MS, ), hypertension, hyperlipidemia, CRI (baseline creatinine 1.3), hypothyroidism, anxiety/mood disorder traumatic left calcaneal fracture, Patient admitted at [facility] 2 months ago for recurrent falls resulting in left calcaneal fracture. No operative intervention. Patient currently following with [facility]. Subsequent discharged to [facility] facility. Patient transferred [facility] for extended rehab. 2 weeks ago patient noted cough symptoms productive of clear sputum. Positive sick COVID-19 contacts at [facility]. Patient completed COVID-19 vaccination. Poor appetite. Worsening shortness of breath without chest pain. Patient evaluated at the ER yesterday. Possible pneumonia on chest x-ray. Patient discharged back to nursing facility with doxycycline Rx. Gram-positive cocci in clusters growing from 1 bottle from blood cultures obtained from ER visit. Patient agitated at [facility] substation engineer back by ER provider. Patient confused and paranoid. Refusing some medications as per daughter. Patient denies unusual chest pain, SOB. Cough productive of clear sputum. Patient remembers yelling at [facility] staff because she was tired. Patient brought back to ER for evaluation. IV Vancomycin administered at the ER. Medical History as above Surgical History : Hemorrhoidectomy, laparoscopic appendectomy, partial toe removal left, tonsillectomy, cholecystectomy, CHRISTIANO, left knee replacement Family History : Leukemia, heart disease Personal/Social history : Non-smoker, no EtOH intake, homemaker in her younger years Admission Exam Per Admitting Provider GENERAL: Comfortable, pleasant, morbidly obese, no respiratory distress SKIN: Normal color, warm HEENT: [place] palpebral conjunctivae, no ptosis, dry buccal mucosa NECK : Supple, short neck, no tenderness CHEST : Decreased breath sounds, occasional expiratory wheezes, no tenderness HEART : RRR, no obvious murmurs ABDOMEN: Some distention, nontender EXTREMITIES : Minimal LE swelling, no LE tenderness, no other conspicuous deformities noted NEUROLOGIC : Coherent, no facial asymmetry, gait and stance not assessed Principal Dx & Hospital Course #1 = Principal Diagnosis (1) Confusion: (2) Agitation: Presented on admission with confusion and paranoid Possible related to medication (opioid) vs acute illness from COVID [address] head showed no acute intracranial hemorrhage, no evidence of acute territorial infarction or other acute intracranial disease process. Continue to avoid any Benzo Review of [place] PDMP does not show oxycodone. May have been started at rehab facility. Oxycodone was discontinued Use tylenol prn for pain Confusion is currently resolved COVID [address] chest showed no acute abnormality and no evidence of pneumonia. Patient was managed with supportive care. Continue this at rehab facility Staph species Blood cx grew Staphylococcus lugdunensis Possible contamination (1 bottle out of 4 ) Lactic acid elevated on admission, now normalized WBC and procalcitonin x 2 are normal Repeat Blood cx no growth Hypothyroidism TSH WNL Continue Levothyroxine CAD Troponin x3 negative Continue metoprolol, aspirin, Plavix and statin Patient discharged to rehab Discharge Exam Constitutional + well hydrated and + obese; no acute distress Eyes PERRL, conjunctivae normal, anicteric sclerae ENMT external ear and nose normal, oropharynx normal Respiratory normal respiratory effort; no respiratory distress Auscultation: lungs clear to auscultation bilaterally Cardiovascular Rate/Rhythm: regular rate and regular rhythm S1 S2 Gastrointestinal (Abdomen) normal bowel sounds, soft, nontender, no hepatosplenomegaly Musculoskeletal Trace pedal edema Neurologic PERRL, EOMI, accommodation nl, no face palsy, no dysarthria Psychiatric A+Ox3, euthymic affect Updated Medication List Medication Instructions Recorded Confirmed Type acetaminophen 325 mg tablet 650 mg PO Q6 PRN Fever Or Pain 12/04/21 12/04/21 History (Tylenol) allopurinol 300 mg tablet 300 mg PO DAILY 12/04/21 12/04/21 History aspirin 81 mg tablet,delayed 81 mg PO DAILY 12/04/21 12/04/21 History release atorvastatin 40 mg tablet 40 mg PO DAILY 12/04/21 12/04/21 History benzonatate 100 mg capsule 200 mg PO Q8 PRN Cough 12/04/21 12/04/21 History bisacodyl 10 mg rectal suppository 10 mg [place] DAILY PRN .NO BM 12/04/21 12/04/21 History (Dulcolax (bisacodyl)) cetirizine 10 mg tablet (Zyrtec) 10 mg PO DAILY 12/04/21 12/04/21 History cholecalciferol (vitamin D3) 25 50 mcg PO DAILY 12/04/21 12/04/21 History mcg (1,000 unit) tablet (Vitamin D3) clopidogrel 75 mg tablet 75 mg PO DAILY 12/04/21 12/04/21 History cranberry conc-vit 1 ea PO BID 12/04/21 12/04/21 History V-hfaqyvd-REO-bromelain 3,875 mg/30 mL oral liquid (UTI-Stat) duloxetine 20 mg capsule,delayed 20 mg PO DAILY 12/04/21 12/04/21 History release sprinkle ferrous gluconate 324 mg (37.5 mg 324 mg PO MOWEFR 12/04/21 12/04/21 History iron) tablet furosemide 40 mg tablet 40 mg PO BID 12/04/21 12/04/21 History isosorbide mononitrate 60 mg 60 mg PO DAILY 12/04/21 12/04/21 History tablet,extended release 24 hr levothyroxine 75 mcg tablet 75 mcg PO DAILY 12/04/21 12/04/21 History magnesium hydroxide 400 mg/5 mL 30 ml PO DAILY PRN DIRECT 12/04/21 12/04/21 History oral suspension (Milk of Magnesia) methyl salicylate-menthol topical 1 applic topical QS 12/04/21 12/04/21 History cream metoprolol tartrate 25 mg tablet 25 mg PO BID 12/04/21 12/04/21 History nitroglycerin 0.4 mg sublingual 0.4 mg sublingual DIRECTED 12/04/21 12/04/21 History tablet pantoprazole 40 mg tablet,delayed 40 mg PO QAM 12/04/21 12/04/21 History release potassium chloride 10 mEq 10 meq PO DAILY 12/04/21 12/04/21 History capsule,extended release vitamin A-vitamin C-vit E-min 1 tab PO DAILY 12/04/21 12/04/21 History tablet guaifenesin 600 mg tablet, 600 mg PO Q12 3 days #6 tabs 12/09/21 Rx extended release 12 hr (Mucinex) Hospital Stay Data Consultations 12/04/21 19:38 ED Decision to Admit Stat Diagnostic Imagining Performed 12/04/21 18:21 CT head/brain wo con Stat 12/04/21 18:24 CT chest diagnostic wo con Stat Pending Results Patient Have Any Pending Studies at Discharge: No Discharge Instructions Given to Patient (Per Discharging Provider) Mrs Callejas You came to the hospital with confusion and cough. You were evaluated and managed in the hospital for COVID 19 infection. You are being discharged to [facility] for rehab. Please continue to take your medications as prescribed. Please avoid opioids as much as possible. Use tylenol as needed for pain. Please follow up with your Primary Doctor. It was a pleasure taking care of you. Total Time Total Time Spent Total Time Spent (In Minutes): 45 Total Time Includes: Examination of the Patient, Discharge Planning and Medication Reconciliation
== END 2021-12-09 17:09 | DRG 178 ==
LOC: 2S 18:11 → ED 18:11 → 2S 12-05 00:39 → SUATTDRO 12-06 09:14 → 3E 12-06 12:45